=== PATIENT | male | born 1945 | race Caucasian/White ===

== ENCOUNTER → 2018-06-08 | Outpatient (CLI) | payer OTHER ==
[~2018-06-08] MED LIST: AMB/10 PO; ASPI81TA28 PO; ATOR-22 PO; BRL90 PO; DOXY100C76 PO; FLM4 PO; GLIP10TA3 PO; ISOS60TA25 PO; LISI10TA PO; METO25TA4 PO; OMEP40CA PO; RANO500T PO
--- NOTE | 2018-06-08 12:53 | DIAGNOSTIC IMAGING REPORT ---
R TOE(S) MIN 2 VIEWS CLINICAL HISTORY: NON HEALING WOUND infection COMPARISON: None. DISCUSSION: Mild generalized degenerative change. No evidence for bony destructive process. Cortical margins appear to be intact. Mild soft tissue edema. There is no evidence for soft tissue swelling. IMPRESSION: Mild soft tissue edema. Mild degenerative change. No acute bony abnormality. The above report was generated using voice recognition software. It may contain grammatical, syntax or spelling errors. Electronically signed by: Shaji Valencia M.D. 06/08/2018 12:51 PM Dictated Date/Time: 06/08/2018 12:41 PM
== END | disposition home or self-care (01) ==
LOC: C.RAD 12:06
PROVIDERS: ATTEND Emergency Medicine
DX: S91.104A Unspecified open wound of right lesser toe(s) without damage to nail, initial encounter (principal); X58.XXXA Exposure to other specified factors, initial encounter